=== PATIENT | female | born 1960 | race Caucasian/White ===

== ENCOUNTER 2017-05-10 10:27 | Day surgery (SDC) | payer BC ==
[~2017-05-10] VITALS: Ht 157.5 cm; Wt 55.3 kg
[~2017-05-10 10:27] MED LIST: CALTRATE 600 +1 EAC1 PO; LOVASTATIN10 MG PO; VITAMIN D31000 UNIT PO
[2017-05-10 11:00] VITALS: BP 138/75
[2017-05-10 11:07] LABS: HEMATOCRIT 42.8 % (36.0-46.0); MCHC 32.5 G/DL (30.0-36.0); MCV 89.2 FL (83-99); MEAN PLAT.VOLUME 8.5 uM^3 (9.5-12.4); PLATELET COUNT 273 K/uL (156-360); RBC DIS.WIDTH-CV 12.6 % (11.8-14.6); RBC DIS.WIDTH-SD 41.5 % (39-53); WHITE BLOOD COUNT 6.4 K/uL (4.1-10.2)
[2017-05-10 11:45] LABS: ALKALINE PHOSPHATASE 76 IU/L (3-129); ANION GAP 10 MEQ/L (2-14); CHLORIDE 104 MEQ/L (99-109); GFR ESTIMATE (CALCULATED) > 59 mL/min/; GLUCOSE 93 mg/dL (70-99); POTASSIUM 3.9 MEQ/L (3.7-5.4); SAMPLE HEMOLYSIS CHECK 0; SAMPLE ICTERIC CHECK 0; SAMPLE LIPEMIA CHECK 0; SODIUM 141 MEQ/L (136-147); TOTAL BILIRUBIN 0.9 MG/DL (0.0-1.0); UREA NITROGEN (BUN) 12 mg/dL (9-23)
[2017-05-10 14:29] VITALS: BP 131/79
[2017-05-10 15:00] VITALS: BP 116/61
== END 2017-05-10 15:11 | disposition home or self-care (01) ==
LOC: SDC 10:27
PROVIDERS: Ophthalmology
DX: H33.42 Traction detachment of retina, left eye (principal); H43.12 Vitreous hemorrhage, left eye; E78.5 Hyperlipidemia, unspecified
CPT/HCPCS: 80053; 85027; J0690; J1100; J2795; J3300